=== PATIENT | female | born 1955 | race Caucasian/White ===

== ENCOUNTER → 2017-02-06 | Outpatient (CLI) | payer OTHER ==
[~2017-02-06] MED LIST: ATOR-22 PO; CPRDOTS OT; GLC/500 PO; PRLSR20 PO; PRMVC VA; VITAMIN D3 PO
== END | disposition home or self-care (01) ==
LOC: C.PAPS 12:00
PROVIDERS: ATTEND Obstetrics & Gynecology
DX: Z01.419 Encounter for gynecological examination (general) (routine) without abnormal findings (principal)

== ENCOUNTER → 2017-04-02 | Outpatient (CLI) | payer OTHER | END | disposition home or self-care (01) | LOC: C.PATHSPEC 17:26 | PROVIDERS: ATTEND Obstetrics & Gynecology | DX: N71.9 Inflammatory disease of uterus, unspecified (principal); N95.0 Postmenopausal bleeding ==

== ENCOUNTER → 2017-05-06 | Day surgery (SDC) | payer OTHER ==
[2017-04-23 12:10] LABS: HEMATOCRIT 40.8 % (37-47); MEAN CORPUSCULAR HEMOGLOBIN 32.2 pg (25-34); MEAN CORPUSCULAR HGB CONC 33.6 g/dl (32-36); MEAN PLATELET VOLUME 11.2 fL (7.4-10.4); PLATELET COUNT 231 K/uL (130-400); RED BLOOD COUNT 4.25 M/uL (4.2-5.4); WHITE BLOOD COUNT 10.48 K/uL (4.8-10.8)
[2017-04-29 08:51] VITALS: Ht 154.9 cm; Wt 67.3 kg
[~2017-05-06] VITALS: Ht 154.9 cm; Wt 67.3 kg
[~2017-05-06] MED LIST changes: +ATROPINE SULFATE 0.1 MG/ML 5ML SYR IV PRN; -CPRDOTS OT; +EpHEDrine SULFATE INJ 50 MG/ML AMP IV PRN; +FENTANYL CITRATE INJ 50 MCG/1 ML 2 ML VIAL IV PRN; +FENTANYL CITRATE INJ 50 MCG/1 ML 2 ML VIAL ONE; +FLUMAZENIL 0.1 MG/1 ML 10 ML VIAL IV PRN; +IBUPROFEN 600 MG TAB PO PRN; +KETOROLAC TROMETHAMINE 30 MG/ML VIAL IV. PRN; +LACTATED RINGER'S 1000ML 1,000 ML IV SCH; +LIDOCAINE HCL 2% 2 ML VIAL (20MG/ML) ONE; +MIDAZOLAM HCL 1 MG/ML 2ML VIAL ONE; +NALOXONE HCL 0.4 MG/1 ML VIAL/CARP IV PRN; +ONDANSETRON INJ 2 MG/ML 2 ML VIAL IV PRN; +ONDANSETRON INJ 2 MG/ML 2 ML VIAL ONE; +OXYCODONE/ACETAMINOPHEN 5-325 TAB PO PRN; +PROMETHAZINE HCL INJ 12.5 MG in SODIUM CHLORIDE 0.9% 50ML 50 ML IV PRN; +PROPOFOL IV EMULSION 10 MG/ML 20 ML VIAL IV ONE; +SILVER NITR/POTASSIUM NITRATE APPLICATOR ONE; +SODIUM CHLORIDE 0.9% 1000ML 1,000 ML IV SCH; -VITAMIN D3 PO
--- NOTE | 2017-05-06 12:53 | History & Physical Bridge - [place] ---
H&P Re-Evaluation Bridge Note: I have examined the patient, reviewed the History & Physical and in the interval since the performance of the History & Physical I have noted the following changes of clinical significance: No changes noted
--- NOTE | 2017-05-06 13:51 | Discharge Instructions ---
Discharge Instructions Date of Service May 06, 2017. Admission Reason for Admission: Post Menopausal Bleeding,N95.0 Discharge Discharge Diagnosis / Problem: s/p surgery Discharge Goals Goal(s): Routine recovery after surgery Activity Recommendations Activity Limitations: as noted below . Instructions / Follow-Up Instructions / Follow-Up ACTIVITY RECOMMENDATIONS: * Avoid tampons, douching, hot tubs, pools, and intercourse until bleeding has stopped. * May shower as usual. * No strenuous activity for 24-48 hours. After 24-48 hours, you may do anything you feel like doing (driving and sports are okay). SPECIAL CARE INSTRUCTIONS: Special Diet: * Mild nausea may occur in the immediate post-operative period. * Take clear liquids such as tea, cola or bouillon until all nausea has subsided; you may then resume your normal diet. Special Care: * Light bleeding and vaginal spotting can last from a few days to 3-4 weeks. Call your doctor if bleeding becomes heavier than the heaviest part of your period. * Check your temperature twice a day for one week. If it goes above 100.4 degrees Fahrenheit (38.0 Celsius), notify your doctor. * Call your doctor's office for an appointment for 2 weeks after your surgery. FOLLOW-UP VISIT: Call your doctor's office for an appointment for 2 weeks after your surgery. Current Hospital Diet Patient's current hospital diet: Discharge Diet Recommended Diet: Regular Diet Procedures Procedures Performed: Dilatation And Curettage, Hysteroscopy, Possible Polypectomy, Pessary Removal And Reinsertion Pending Studies Studies pending at discharge: yes List of pending studies: pathology Medical Emergencies . Who to Call and When: Medical Emergencies: If at any time you feel your situation is an emergency, please call 911 immediately. . Non-Emergent Contact Non-Emergency issues call your: Project Safety Manager . . "Provider Documentation" section prepared by Ester Medrano. . VTE Core Measure Inpt VTE Proph given/why not?: Treatment not indicated
--- NOTE | 2017-05-06 13:56 | [facility] Post Operative Brief Note ---
Immediate Operative Summary Operative Date May 06, 2017. Pre-Operative Diagnosis Post Menopausal Bleeding, abnormal laboratory findings. Uterine prolapse Post-Operative Diagnosis same Procedure(s) Performed Dilatation And Curettage, Hysteroscopy, Possible Polypectomy, Pessary Removal And Reinsertion Surgeon Dr Medrano Film Washer Surgeon(s) none Estimated Blood Loss 0ml Findings grade 3 uterine prolapse and cystocele. uterus sounds to 8cm. hysteroscopic findings, nl ostia bilaterally, normal cavity shape, bland appearing, no evidence of lesions. saline hsc fluid deficit 50cc. minimal curettings. Fluids (cc crystalloids) 600 Specimens A)endometrial curettings Drains none Anesthesia general Complication(s) None Disposition Recovery Room / PACU
--- NOTE | 2017-05-06 14:07 | OPERATIVE REPORT ---
DATE OF OPERATION: 05/06/2017 PREOPERATIVE DIAGNOSES: 1. Postmenopausal bleeding. 2. Abnormal laboratory findings. 3. Uterine prolapse. POSTOPERATIVE DIAGNOSES: Same. PROCEDURES: 1. Dilatation and curettage. 2. Diagnostic hysteroscopy. 3. Pessary removal and replacement. SURGEON: Dr. Ester Medrano. OPTOMETRY ASSISTANT: None. IV FLUIDS: 600 mL. ESTIMATED BLOOD LOSS: 0 mL. ANESTHESIA: General. FINDINGS: Uterus sounds to 8 cm, a bland-appearing cavity with normal tubal ostia bilaterally. Minimal curettings. Hysteroscopic fluid saline fluid deficit 50 mL. Small linear irritations of vaginal sanabria presumably from pessary pressure. INDICATIONS: A 61-year-old who I have seen for many years due to uterine prolapse and cystocele for pessary management. She presented in the summer with postmenopausal bleeding and underwent evaluation to include ultrasound with questionable debris within the uterine cavity as well as endometrial biopsy with fluid within the cavity, concerning for infection. She was counseled to proceed with further evaluation with D&C hysteroscopy and presented for that today. DESCRIPTION OF PROCEDURE: The patient was taken to the operating room and identified. Her cube pessary was removed and cleaned. After adequate general anesthesia was obtained, she was placed in the dorsolithotomy position and her cube pessary was removed and cleaned. She was then prepped and draped in the usual sterile fashion. The bladder was drained for clear yellow urine. A weighted speculum and anterior retractor were placed to visualize the cervix, which was grasped on its anterior lip with an Allis clamp. The cervix was sequentially dilated using Thea dilators to 23. The diagnostic hysteroscope primed with saline media which was gently placed through the cervical os into the uterine cavity with the findings as noted above. The hysteroscope was then removed. The uterus was curettaged to a gritty consistency using a serrated curette. The hysteroscope was reintroduced with no evidence of perforation and showing adequate sampling of the lining. At this point, the procedure was terminated. Small linear irritations of vaginal wall were cauterized with silver nitrate. The cube pessary was replaced. At this point, the patient was returned to supine position after all instruments were removed. She was awoken from anesthesia and transferred to the recovery room in stable condition. I attest to the content of the Intraoperative Record and any orders documented therein. Any exceptions are noted below. [facility]
[2017-05-06 14:27] VITALS: TEMP 36.4
[2017-05-06 14:56] VITALS: BP 126/80; PULSE 62; O2SAT 97
--- NOTE | 2017-05-06 14:59 | Anesthesia Progress Nt - [facility] ---
Anesthesia Post Op Note Date & Time May 06, 2017 at 14:58 Vital Signs Pain Intensity: 0 Vital Signs Past 12 Hours Date Time Temp Pulse Resp B/P (MAP) Pulse Ox O2 Delivery O2 Flow Rate FiO2 05/06/17 14:56 62 18 126/80 (95) 97 Room Air 05/06/17 14:27 36.4 65 20 132/80 (97) 98 Room Air 05/06/17 14:22 70 17 05/06/17 14:22 71 17 96 05/06/17 14:21 36.9 70 20 125/69 97 Room Air 05/06/17 14:21 143/79 05/06/17 14:17 68 21 100 05/06/17 14:17 67 21 05/06/17 14:16 65 16 05/06/17 14:16 64 16 125/69 100 05/06/17 14:11 68 21 05/06/17 14:11 69 21 125/73 100 05/06/17 14:06 70 22 135/75 100 05/06/17 14:06 69 22 05/06/17 14:01 70 19 121/66 100 05/06/17 14:01 69 19 05/06/17 13:56 71 19 129/70 100 05/06/17 13:56 73 19 05/06/17 13:52 139/78 05/06/17 13:51 85 05/06/17 13:51 85 97 05/06/17 13:51 36.7 78 20 125/69 99 Diffusion Mask 6 05/06/17 12:04 36.4 78 18 141/85 (103) 96 Room Air Notes Mental Status: alert / awake / arousable, participated in evaluation Pt Amnestic to Procedure: Yes Nausea / Vomiting: adequately controlled Pain: adequately controlled Airway Patency, RR, SpO2: stable & adequate BP & HR: stable & adequate Hydration State: stable & adequate Anesthetic Complications: no major complications apparent
== END | disposition home or self-care (01) ==
LOC: X.SURG 11:51
PROVIDERS: ATTEND Obstetrics & Gynecology
DX: N95.0 Postmenopausal bleeding (principal); R79.9 Abnormal finding of blood chemistry, unspecified; N81.2 Incomplete uterovaginal prolapse; I10 Essential (primary) hypertension; E11.9 Type 2 diabetes mellitus without complications; R89.9 Unspecified abnormal finding in specimens from other organs, systems and tissues; K21.9 Gastro-esophageal reflux disease without esophagitis; Z98.890 Other specified postprocedural states; Z82.49 Family history of ischemic heart disease and other diseases of the circulatory system; Z79.899 Other long term (current) drug therapy